=== PATIENT | female | born 1945 | race Caucasian/White ===

== ENCOUNTER 2018-06-10 09:06 | Day surgery (SDC) | payer OTHER ==
[~2018-06-10] VITALS: Ht 149.9 cm; Wt 64.0 kg
[~2018-06-10 09:06] MED LIST: ADULT LOW DOSE81 M1 PO; CALCIUM 500 +1 EAC5 PO; CYTOTEC200 MCG PO; MAGNESIUM250 MG PO; PRILOSEC20 MG PO; PROAIR HFA8.5 GM IH; REQUIP0.25 MG PO; SYMBICORT60 INHALAT IH; SYNTHROID50 MCG PO; VITAMIN D35000 UNIT PO; ZOCOR20 MG PO
[2018-06-10 10:15] VITALS: BP 168/74
[2018-06-10 12:50] VITALS: BP 148/65
[2018-06-10 14:14] VITALS: BP 129/60
== END 2018-06-10 14:20 | disposition home or self-care (01) ==
LOC: SDC 09:06
DX: N84.0 Polyp of corpus uteri (principal); N83.202 Unspecified ovarian cyst, left side; J44.9 Chronic obstructive pulmonary disease, unspecified; K21.9 Gastro-esophageal reflux disease without esophagitis; E03.9 Hypothyroidism, unspecified; E78.5 Hyperlipidemia, unspecified; M85.80 Other specified disorders of bone density and structure, unspecified site; G25.81 Restless legs syndrome; Z90.49 Acquired absence of other specified parts of digestive tract; Z83.3 Family history of diabetes mellitus; Z82.49 Family history of ischemic heart disease and other diseases of the circulatory system; Z80.1 Family history of malignant neoplasm of trachea, bronchus and lung; Z79.82 Long term (current) use of aspirin; Z88.1 Allergy status to other antibiotic agents
CPT/HCPCS: 88305; J0690; J2250; J2405; J3010; Q0175